=== PATIENT | female | born 1995 ===

== ENCOUNTER 2017-04-01 21:48 | Emergency (ER) | payer MEDICAID, OTHER ==
--- NOTE | 2017-04-01 21:58 | ED.REPORT ---
HPI-Neurologic Deficit Date of Service April 01, 2017 ED Provider: Dr. Odonnell 21 y/o female with hx of migraines and family hx of CVA presents to the ED via EMS due to confusion and left sided weakness. The pt was last normal at 20:30. As per the EMS, the pt's glucose was 108 and she was hypertensive. The pt was having intercourse with her boyfriend when they noticed vaginal bleeding after the intercourse. The pt went for a shower and came out confused, unable to move her left extremities and with slurred speech. As per the boyfriend the pt reported to him that she wasn't feeling well. Pt is taking Provera and denies taking any other medications, drugs or alcohol. The pt reports she feels okay. She denies headache, left sided weakness and possibility of .The pt's mom had a stroke at 30 years of age. The pt is allergic to Ibuprofen. Pt's PCP: Dr. Gibson. Nursing Notes Stated Complaint: CODE STROKE Chief Complaint: Stroke Symptoms Nursing Notes Reviewed: Yes General Time Seen by Provider: 21:58 Chief Complaint Weakness arm... (Left), Numbness arm... (Left) Hx Obtained From: Patient Arrived By: Ambulance Sudden in Onset?: Yes Onset Occurred: 46 - 59 minutes ago Symptom Duration: Since onset Progression Since Onset: Unchanged Severity: Current: No pain currently Severity: Maximum: No pain Recent Healthcare: No recent doctor visit Similar Sx Previous: No Risk Factors NIH Stroke Scale Level of Consciousness: Not alert, arousable (1) Ask Month & Age: Both questions right (0) Open/Close Eyes/Hand Boiler Control Room Operator: Performs both tasks (0) Horizontal EO Movements: Tot/forced gaze pares (2) Visual Alcantar: Bilaterally blind (3) Facial Palsy: Bryan complete, up&low (3) Right Arm Motor Drift (10s): No drift 10 sec (0) Left Arm Motor Drift (10s): No movement (4) Right Leg Motor Drift (5s): No drift 5 sec (0) Left Leg Motor Drift (5s): No movement (4) Limb Ataxia FNF/Heel-Sin: Ataxia in 2 limbs (2) Sensation (Arms/Legs/Face): Complete sensory loss (2) Language Aphasia: Severe, fragmented (2) Dysarthria: Severe slur unintel (2) Extinction/Inattention: Extin to >1 modal (2) NIHSS Score: 27 Time NIHSS Performed: 22:14 Date NIHSS Performed: April 01, 2017 Past Medical History Past Medical History Migraines Past Surgical History none reported Family History Pt's mother had CVA at age 30. Smoking History Unknown if Ever Smoker Social History Alcohol Use: Denies alcohol use Drug Use: Denies drug use Other Social History: Good social support Ambulatory Status Independent Review of Systems Neurologic: Reports: Confusion, Slurred speech, Unable to speak, Denies: Headache, Numbness, Weakness Complete sys rev & neg: except as marked. Physical Exam Physical Exam Notes: Temp 36.8. Obese pokagon female with L hemineglect and slurred speech. Initial Vital Signs Vital Signs (First) Date Time Temp Pulse Resp B/P Pulse Ox O2 Delivery O2 Flow Rate FiO2 04/01/17 22:08 90 20 149/80 99 04/01/17 22:47 36.8 Nasal Cannula 2 Initial VS: Reviewed ENT: Mucous membranes moist, Conjunctiva normal, No scleral icterus Neck: Supple, Non-tender, Full range of motion Abdomen / GI: Soft, Non-tender, No guarding, No rebound, No distention Skin: Warm, Dry, No cyanosis General/Constitutional: Awake Alertness: Positive: Somnolent Head / Eyes: Atraumatic, Normocephalic, PERRL, EOMI Respiratory / Chest: Atraumatic, Breath sounds NL, Breath sounds = bilat, No respiratory distress, No rales, No rhonchi, No wheezing Cardiovascular: Heart rate NL, Regular rhythm, Heart sounds NL, No gallop, No murmurs Neurologic: Oriented X3 Mental Status: Positive: Somnolent Speech: Positive: Slow, Slurred Focal Weakness: Positive: Upper extremity L Sensory Deficit: Positive: Upper extremity L Right side gaze preference Dense left facial droop Declining mental status. Female Genitourinary: Roofing Plant Supervisor present Vaginal wall full of blood clots Some active bleeding Bleeding appears significantly more than typical menstruation. Interpretation & Diagnostics Lab Results Interpretation Result Diagram: 04/01/17222104/01/172 Test 04/01/17 22:22 White Blood Count 18.9th/mm3 (3.8-10.1) Red Blood Count 4.57mil/mm3 (3.90-5.20) Hemoglobin 12.5g/dL (12.0-15.6) Hematocrit 36.8% (35.0-46.0) Mean Corpuscular Volume 80.5fL (81-100) Mean Corpuscular Hemoglobin 27.4pg (27.0-35.0) Mean Corpuscular Hemoglobin Concent 34.0% (32.0-37.0) Red Cell Distribution Width 13.9% (12.3-15.4) Platelet Count 319bil/L (150-400) Neutrophils (%) (Auto) 87.7% (40-74) Lymphocytes (%) (Auto) 6.2% (14-46) Monocytes (%) (Auto) 5.5% (4-12) Eosinophils (%) (Auto) 0.1% (0-5) Basophils (%) (Auto) 0.1% (0-3) Band Neutrophils % 0% (1-5) Prothrombin Time 11.3sec (8.1-12.5) Prothromb Time International Ratio 1.05ratio Activated Partial Thromboplast Time 25.1sec (22.8-33.0) Sodium Level 136mEq/L (134-144) Potassium Level 3.9mEq/L (3.5-5.2) Chloride Level 100mEq/L (97-108) Carbon Dioxide Level 22mmol/L (18-29) Blood Urea Nitrogen 10mg/dL (6-20) Creatinine 0.56mg/dL (0.57-1.00) Estimat Glomerular Filtration Rate 196mL/min (>59) Glucose Level 129mg/dL (60-99) Calcium Level 8.9mg/dL (8.5-10.1) Total Bilirubin 0.5mg/dL (0.0-1.2) Aspartate Amino Transf (AST/SGOT) 29U/L (0-50) Alanine Aminotransferase (ALT/SGPT) 42U/L (0-32) Alkaline Phosphatase 77U/L (25-150) Troponin T 0.010ug/L (0.0-0.011) Total Protein 7.0g/dL (6.4-8.4) Albumin 3.9g/dL (3.4-5.0) Human Chorionic Gonadotropin, Qual Negative (Negative) Hold Vincent Top Tube Received (Received) ECG Interpretation ECG Interpretation: Normal sinus rhythm. Rate 93 Time: 22:52 Interpreted by: ED physician Re-Eval/Medical Decision Med Decision/Clinical Course 21-year-old female presents within the TPA window with a dense left hemiparesis. She has a high stroke scale however there is concern related to vaginal bleeding which began immediately prior to the onset of her stroke symptoms and occurred in the context of having intercourse. The patient's test was negative. She was hemodynamically stable but on pelvic exam she did have evidence of significant vaginal hemorrhage, her vaginal vault was full of clots. At this point though we had mixed TPA, I felt that the risk outweighed the benefit in this situation. She was given a liter of normal saline and we have requested airlift to transport her to [facility] for possible intravascular intervention. CT angiographic was ordered however the ETA for airlift at this point is short and we would not have time to a copy since study prior to the patient's departure, it is not felt beneficial to delay her departure to complete the study. Re-Evaluation/Progress : Time of Eval: 23:00 Re-Evaluation/Progress Note: Pt rechecked. Informed pt and her boyfriend of need for transfer. Pt ad her boyfriend understand and agree with the plan for admission. All questions addressed. Consultation : Consulted With: Neurology Call Returned at: 22:52 Splunk Architect: Agrees with eval, Agrees with plan Note: Dr. Nwoak, [facility], agreed with the plan to not give TPA due to vaginal bleeding. Discharge & Departure Impression: Primary Impression: Cerebrovascular accident CVA mechanism: unspecified Qualified Code: I63.9 - Cerebral infarction, unspecified Disposition: Transfer, Acute Care Facility Receiving Hospital: [facility]; Dr Nowak accpeting Transfer Accepted: Yes Transfer Reason: Higher level of care Spoke with: Specialty physician Patient Status: Stable Patient Informed: Yes Axel Odonnell MD April 01, 2017 21:58 Yumi Turpin April 01, 2017 22:16
[2017-04-01 22:08] VITALS: BP 149/80; PULSE 90; RESP 20; O2SAT 99
[2017-04-01 22:33] LABS: BASOPHILS % (AUTO) 0.1 % (0-3); EOSINOPHILS % (AUTO) 0.1 % (0-5); MONOCYTES % (AUTO) 5.5 % (4-12); Mean Corpuscular Hemoglobin 27.4 pg (27.0-35.0); Mean Corpuscular Volume 80.5 fL (81-100); NEUTROPHILS % (AUTO) 87.7 % (40-74); Platelet Count 319 bil/L (150-400)
[2017-04-01 22:43] LABS: INR 1.05 ratio
[2017-04-01 22:47] VITALS: BP 153/84; RESP 20; O2SAT 100
[2017-04-01] MEDS ORDERED: 0.9% Sodium Chloride 1,000 ML IV ONE (23:00)
[2017-04-01 23:08] VITALS: BP 138/79; PULSE 91; RESP 25; O2SAT 100
[2017-04-01 23:30] VITALS: BP 138/79; PULSE 91; RESP 25; O2SAT 100
--- NOTE | 2017-04-02 08:56 | DRSVH ---
PROCEDURE: CT BRAIN (TPA) ([id number]) INDICATIONS: Confusion,, acute altered mental status, stroke TECHNIQUE: Noncontrast 4.5 mm thick angled axial sections acquired from the foramen magnum to the vertex, with c oronal reformats. COMPARISON: None. FINDINGS: Image quality: Limited by patient motion artifact. CSF spaces: Basal cisterns are patent. No extra-axial fluid collections. The ventricles are symmet sima in size and shape. Brain: No intracranial bleeds or masses. There is cerebral volume loss for age, with resultant vent ricular and sulcal prominence. There are periventricular and deep white matter chronic small vessel ischemic changes. There is intracranial internal carotid artery atherosclerosis. Skull and face: Calvarium and visualized facial bones appear intact, without suspicious lesions. Sinuses: Mucosal thickening noted in the maxillary sinuses bilaterally. The mastoids are clear. IMPRESSION: No gross acute intracranial disease process within limitations caused by patient motion. This study fulfills neurological imaging criteria for inclusion or exclusion of acute stroke therapie s based on available published neurological guidelines. Dictated by: Jamia Rachel MD, PhD on 04/02/2017 at 8:52 Approved by: Jamia Rachel MD, PhD on 04/02/2017 at 8:55
== END 2017-04-01 23:30 | disposition short-term general hospital (02) ==
LOC: EDBD 21:48 → SED 21:48 → EDUNIT# 21:48 → SED 23:30
DX: I63.9 Cerebral infarction, unspecified (principal); R29.727 NIHSS score 27
CPT/HCPCS: 36415; 70450; 80053; 84484; 84703; 85025; 85610; 85730; 93005; 96360; 99285; 99291; 99292; J7030